=== PATIENT | female | born 1955 | race Two or more races ===

== ENCOUNTER 2017-07-21 10:19 | Outpatient (CLI) | payer OTHER | END 2017-07-21 10:45 | disposition home or self-care (01) | LOC: LAB 10:19 | DX: D64.89 Other specified anemias (principal); N39.0 Urinary tract infection, site not specified; E03.8 Other specified hypothyroidism; E78.2 Mixed hyperlipidemia; Z12.11 Encounter for screening for malignant neoplasm of colon; D68.8 Other specified coagulation defects; E55.9 Vitamin D deficiency, unspecified; D55.8 Other anemias due to enzyme disorders ==

== ENCOUNTER 2017-07-21 11:57 | Outpatient (CLI) | payer OTHER | END 2017-07-21 12:13 | disposition home or self-care (01) | LOC: MAMO-SONO 11:57 | DX: Z12.31 Encounter for screening mammogram for malignant neoplasm of breast (principal); Z87.898 Personal history of other specified conditions; N63.20 Unspecified lump in the left breast, unspecified quadrant ==

== ENCOUNTER 2017-07-28 15:10 | Outpatient (CLI) | payer OTHER | END 2017-07-28 15:16 | disposition home or self-care (01) | LOC: RAD 15:10 | DX: M51.87 Other intervertebral disc disorders, lumbosacral region (principal) ==

== ENCOUNTER 2017-08-12 14:00 | Outpatient (CLI) | payer OTHER | END 2017-08-12 14:01 | disposition home or self-care (01) | LOC: NUCLEAR 14:00 | DX: M81.0 Age-related osteoporosis without current pathological fracture (principal) ==

== ENCOUNTER 2017-08-31 12:50 | Outpatient (CLI) | payer OTHER | END 2017-08-31 13:01 | disposition home or self-care (01) | LOC: TOM 12:50 | DX: M46.47 Discitis, unspecified, lumbosacral region (principal); S32.000A Wedge compression fracture of unspecified lumbar vertebra, initial encounter for closed fracture ==

== ENCOUNTER 2017-09-23 07:54 | Outpatient (CLI) | payer OTHER | END 2017-09-23 08:09 | disposition home or self-care (01) | LOC: LAB 07:54 | DX: E78.2 Mixed hyperlipidemia (principal); E11.65 Type 2 diabetes mellitus with hyperglycemia ==

== ENCOUNTER → 2018-01-06 09:17 | Outpatient (CLI) | payer OTHER | END | disposition home or self-care (01) | LOC: LAB 09:17 | DX: D64.89 Other specified anemias (principal); E11.59 Type 2 diabetes mellitus with other circulatory complications; N39.0 Urinary tract infection, site not specified; E03.8 Other specified hypothyroidism; E78.4 Other hyperlipidemia; Z79.01 Long term (current) use of anticoagulants ==

== ENCOUNTER 2018-01-17 08:54 | Emergency (ER) | payer OTHER ==
[~2018-01-17] VITALS: Ht 157.5 cm; Wt 59.0 kg
[2018-01-17] MEDS ORDERED: CRESTOR20 MG (09:03)
== END 2018-01-17 13:18 | disposition home or self-care (01) ==
LOC: ER 08:54
DX: R10.32 Left lower quadrant pain (principal); M54.5 Low back pain

== ENCOUNTER → 2018-01-20 | Outpatient (CLI) | payer OTHER ==
[~2018-01-20] MED LIST: CRESTOR20 MG
== END | disposition home or self-care (01) ==
LOC: LAB 15:46
DX: K85.90 Acute pancreatitis without necrosis or infection, unspecified (principal); N39.0 Urinary tract infection, site not specified; M62.82 Rhabdomyolysis; T79.6XXA Traumatic ischemia of muscle, initial encounter

== ENCOUNTER 2018-01-21 08:22 | Outpatient (CLI) | payer OTHER | END 2018-01-21 09:55 | disposition home or self-care (01) | LOC: TOM 08:22 | DX: K85.90 Acute pancreatitis without necrosis or infection, unspecified (principal); N20.0 Calculus of kidney ==

== ENCOUNTER 2018-05-05 13:19 | Outpatient (CLI) | payer OTHER | END 2018-05-05 13:31 | disposition home or self-care (01) | LOC: TOM 13:19 | DX: I63.033 Cerebral infarction due to thrombosis of bilateral carotid arteries (principal) ==

== ENCOUNTER 2018-07-14 10:23 | Outpatient (CLI) | payer OTHER ==
[~2018-07-14] VITALS: Ht 157.5 cm; Wt 56.7 kg
== END 2018-07-14 10:40 | disposition home or self-care (01) ==
LOC: OFIC 805 10:23
DX: J31.0 Chronic rhinitis (principal); J34.3 Hypertrophy of nasal turbinates; R05 Cough; J34.2 Deviated nasal septum

== ENCOUNTER 2018-07-16 15:29 | Outpatient (CLI) | payer OTHER | END 2018-07-16 15:41 | disposition home or self-care (01) | LOC: MAMO-SONO 15:29 | DX: Z12.31 Encounter for screening mammogram for malignant neoplasm of breast (principal); Z87.898 Personal history of other specified conditions; N60.11 Diffuse cystic mastopathy of right breast; N60.12 Diffuse cystic mastopathy of left breast ==

== ENCOUNTER 2018-07-27 08:21 | Outpatient (CLI) | payer OTHER | END 2018-07-27 08:28 | disposition home or self-care (01) | LOC: LAB 08:21 | DX: E78.49 Other hyperlipidemia (principal); N91.2 Amenorrhea, unspecified; E34.8 Other specified endocrine disorders; N95.1 Menopausal and female climacteric states; E23.6 Other disorders of pituitary gland; R19.00 Intra-abdominal and pelvic swelling, mass and lump, unspecified site; N39.0 Urinary tract infection, site not specified; E55.9 Vitamin D deficiency, unspecified; N73.8 Other specified female pelvic inflammatory diseases; A60.04 Herpesviral vulvovaginitis; Z34.90 Encounter for supervision of normal pregnancy, unspecified, unspecified trimester ==

== ENCOUNTER → 2018-10-06 08:02 | Outpatient (CLI) | payer OTHER | END | disposition home or self-care (01) | LOC: LAB 08:02 | DX: M32.10 Systemic lupus erythematosus, organ or system involvement unspecified (principal) ==

== ENCOUNTER 2018-10-13 18:39 | Emergency (ER) | payer OTHER ==
[~2018-10-13] VITALS: Ht 157.5 cm; Wt 56.7 kg
== END 2018-10-13 21:52 | disposition home or self-care (01) ==
LOC: ER 18:39
DX: R10.84 Generalized abdominal pain (principal); R00.2 Palpitations; F06.4 Anxiety disorder due to known physiological condition

== ENCOUNTER 2018-11-12 07:25 | Outpatient (CLI) | payer OTHER | END 2018-11-12 07:49 | disposition home or self-care (01) | LOC: LAB 07:25 | DX: D64.89 Other specified anemias (principal); M81.0 Age-related osteoporosis without current pathological fracture; I10 Essential (primary) hypertension ==

== ENCOUNTER 2019-01-13 07:52 | Outpatient (CLI) | payer OTHER | END 2019-01-13 15:00 | disposition home or self-care (01) | LOC: LAB 07:52 | DX: M32.8 Other forms of systemic lupus erythematosus (principal); M34.2 Systemic sclerosis induced by drug and chemical ==

== ENCOUNTER 2019-04-06 11:16 | Outpatient (CLI) | payer OTHER ==
[~2019-04-06] VITALS: Ht 152.4 cm; Wt 56.7 kg
== END 2019-04-06 13:24 | disposition home or self-care (01) ==
LOC: OFIC 805 11:16
DX: H93.12 Tinnitus, left ear (principal); H61.22 Impacted cerumen, left ear; J34.2 Deviated nasal septum; J34.3 Hypertrophy of nasal turbinates; J31.0 Chronic rhinitis

== ENCOUNTER 2019-05-05 13:52 | Outpatient (CLI) | payer OTHER | END 2019-05-05 15:00 | disposition home or self-care (01) | LOC: LAB 13:52 | DX: J15.7 Pneumonia due to Mycoplasma pneumoniae (principal); J09.X1 Influenza due to identified novel influenza A virus with pneumonia; M32.8 Other forms of systemic lupus erythematosus; M06.09 Rheumatoid arthritis without rheumatoid factor, multiple sites; M32.10 Systemic lupus erythematosus, organ or system involvement unspecified ==

== ENCOUNTER 2019-05-24 13:04 | Outpatient (CLI) | payer OTHER | END 2019-05-24 13:17 | disposition home or self-care (01) | LOC: MAMO-SONO 13:04 | DX: N63.10 Unspecified lump in the right breast, unspecified quadrant (principal); N63.20 Unspecified lump in the left breast, unspecified quadrant; R92.0 Mammographic microcalcification found on diagnostic imaging of breast ==

== ENCOUNTER 2019-05-31 08:34 | Outpatient (CLI) | payer OTHER | END 2019-05-31 15:00 | disposition home or self-care (01) | LOC: LAB 08:34 | DX: E78.49 Other hyperlipidemia (principal); E34.8 Other specified endocrine disorders; N95.1 Menopausal and female climacteric states; E23.6 Other disorders of pituitary gland; R19.00 Intra-abdominal and pelvic swelling, mass and lump, unspecified site; N39.0 Urinary tract infection, site not specified; E55.9 Vitamin D deficiency, unspecified; N91.2 Amenorrhea, unspecified; N73.9 Female pelvic inflammatory disease, unspecified; A60.04 Herpesviral vulvovaginitis; Z34.90 Encounter for supervision of normal pregnancy, unspecified, unspecified trimester ==

== ENCOUNTER 2019-08-02 10:41 | Outpatient (CLI) | payer OTHER ==
[2019-08-02] MEDS ORDERED: FLONASE ALLERG9.9 ML NASAL (14:18)
[2019-08-02] MEDS ORDERED: LIPO-FLAVONOID1 EACH PO (14:19)
== END 2019-08-02 12:00 | disposition home or self-care (01) ==
LOC: OFIC 805 10:41
DX: H93.12 Tinnitus, left ear (principal); H61.22 Impacted cerumen, left ear

== ENCOUNTER → 2019-08-04 | Outpatient (CLI) | payer OTHER ==
[~2019-08-04] MED LIST changes: +FLONASE ALLERG9.9 ML NASAL; +LIPO-FLAVONOID1 EACH PO
== END | disposition home or self-care (01) ==
LOC: OFIC 805 12:09
DX: H93.12 Tinnitus, left ear (principal)

== ENCOUNTER 2019-09-07 16:21 | Emergency (ER) | payer OTHER ==
[~2019-09-07] VITALS: Ht 157.5 cm; Wt 58.5 kg
== END 2019-09-07 19:40 | disposition home or self-care (01) ==
LOC: ER 16:21
DX: M54.16 Radiculopathy, lumbar region (principal); M25.552 Pain in left hip

== ENCOUNTER 2019-09-23 13:22 | Outpatient (CLI) | payer OTHER | END 2019-09-23 13:29 | disposition home or self-care (01) | LOC: TOM 13:22 | PROVIDERS: ATTEND Physical Medicine & Rehabilitation | DX: M54.16 Radiculopathy, lumbar region (principal) ==

== ENCOUNTER → 2020-01-31 | Outpatient (CLI) | payer OTHER | END | disposition home or self-care (01) | LOC: OFIC 805 12:00 | PROVIDERS: ATTEND Otolaryngology | DX: J34.2 Deviated nasal septum (principal); H93.13 Tinnitus, bilateral ==

== ENCOUNTER → 2020-02-23 08:27 | Outpatient (CLI) | payer OTHER | END | disposition home or self-care (01) | LOC: LAB 08:27 | PROVIDERS: ATTEND Internal Medicine Interventional Cardiology | DX: D64.89 Other specified anemias (principal); E11.59 Type 2 diabetes mellitus with other circulatory complications; N39.0 Urinary tract infection, site not specified; E03.8 Other specified hypothyroidism; E78.49 Other hyperlipidemia; Z79.01 Long term (current) use of anticoagulants ==

== ENCOUNTER 2020-06-05 12:59 | Outpatient (CLI) | payer OTHER | END 2020-06-05 13:05 | disposition HB | LOC: RAD 12:59 | DX: M51.37 Other intervertebral disc degeneration, lumbosacral region (principal); M48.061 Spinal stenosis, lumbar region without neurogenic claudication ==

== ENCOUNTER → 2020-06-12 | Outpatient (CLI) | payer OTHER ==
[~2020-06-12] MED LIST changes: +ROSUVASTATIN CA20 MG
== END | disposition home or self-care (01) ==
LOC: MAMO-SONO 11:40
PROVIDERS: ATTEND Anesthesiology
DX: Z12.31 Encounter for screening mammogram for malignant neoplasm of breast (principal); N64.59 Other signs and symptoms in breast

== ENCOUNTER → 2020-06-20 | Emergency (ER) | payer OTHER ==
[~2020-06-20] VITALS: Ht 157.5 cm; Wt 55.8 kg
== END | disposition left against medical advice (07) ==
LOC: ER 20:04
DX: M54.16 Radiculopathy, lumbar region (principal); M47.896 Other spondylosis, lumbar region

== ENCOUNTER 2020-07-10 09:01 | Outpatient (CLI) | payer OTHER | END 2020-07-10 09:14 | disposition home or self-care (01) | LOC: LAB 09:01 | PROVIDERS: ATTEND Obstetrics & Gynecology | DX: E11.9 Type 2 diabetes mellitus without complications (principal) ==

== ENCOUNTER → 2020-08-15 08:43 | Outpatient (CLI) | payer OTHER | END | disposition home or self-care (01) | LOC: LAB 08:43 | PROVIDERS: ATTEND Specialist | DX: M35.1 Other overlap syndromes (principal) ==

== ENCOUNTER 2020-08-15 09:55 | Outpatient (CLI) | payer OTHER | END 2020-08-15 10:09 | disposition home or self-care (01) | LOC: TOM 09:55 | PROVIDERS: ATTEND Specialist | DX: M51.36 Other intervertebral disc degeneration, lumbar region (principal) ==

== ENCOUNTER → 2020-11-29 08:36 | Outpatient (CLI) | payer OTHER | END | disposition home or self-care (01) | LOC: LAB 08:36 | PROVIDERS: ATTEND Specialist | DX: D64.89 Other specified anemias (principal); N39.0 Urinary tract infection, site not specified; D68.8 Other specified coagulation defects; E03.8 Other specified hypothyroidism; E78.2 Mixed hyperlipidemia; Z12.11 Encounter for screening for malignant neoplasm of colon ==

== ENCOUNTER → 2021-02-13 08:41 | Outpatient (CLI) | payer OTHER | END | disposition home or self-care (01) | LOC: LAB 08:41 | PROVIDERS: ATTEND Specialist | DX: N39.0 Urinary tract infection, site not specified (principal) ==

== ENCOUNTER 2021-04-09 16:32 | Outpatient (CLI) | payer OTHER | END 2021-04-09 23:00 | disposition home or self-care (01) | LOC: LAB 16:32 | DX: Z03.818 Encounter for observation for suspected exposure to other biological agents ruled out (principal) ==

== ENCOUNTER 2021-05-27 16:05 | Outpatient (CLI) | payer OTHER | END 2021-05-27 16:08 | disposition home or self-care (01) | LOC: RAD 16:05 | PROVIDERS: ATTEND Specialist | DX: M54.2 Cervicalgia (principal); M60.9 Myositis, unspecified; M62.838 Other muscle spasm ==

== ENCOUNTER 2021-07-04 08:29 | Outpatient (CLI) | payer OTHER | END 2021-07-04 08:38 | disposition home or self-care (01) | LOC: LAB 08:29 | PROVIDERS: ATTEND Specialist | DX: E11.21 Type 2 diabetes mellitus with diabetic nephropathy (principal); N39.9 Disorder of urinary system, unspecified; D64.9 Anemia, unspecified ==

== ENCOUNTER 2021-07-04 09:19 | Outpatient (CLI) | payer OTHER | END 2021-07-04 09:30 | disposition home or self-care (01) | LOC: MAMO-SONO 09:19 | PROVIDERS: ATTEND Specialist | DX: Z12.31 Encounter for screening mammogram for malignant neoplasm of breast (principal) ==

== ENCOUNTER 2021-10-10 07:53 | Outpatient (CLI) | payer OTHER | END 2021-10-10 07:54 | disposition home or self-care (01) | LOC: LAB 07:53 | PROVIDERS: ATTEND Specialist | DX: E03.9 Hypothyroidism, unspecified (principal); N39.9 Disorder of urinary system, unspecified; Z12.11 Encounter for screening for malignant neoplasm of colon; E11.65 Type 2 diabetes mellitus with hyperglycemia; K75.81 Nonalcoholic steatohepatitis (NASH); N39.0 Urinary tract infection, site not specified ==

== ENCOUNTER 2021-10-17 09:46 | Outpatient (CLI) | payer OTHER | END 2021-10-17 09:50 | disposition home or self-care (01) | LOC: RAD 09:46 | DX: M99.03 Segmental and somatic dysfunction of lumbar region (principal); M99.04 Segmental and somatic dysfunction of sacral region ==

== ENCOUNTER 2022-01-02 08:07 | Outpatient (CLI) | payer OTHER | END 2022-01-02 08:08 | disposition home or self-care (01) | LOC: LAB 08:07 | PROVIDERS: ATTEND Specialist | DX: E11.69 Type 2 diabetes mellitus with other specified complication (principal); E11.21 Type 2 diabetes mellitus with diabetic nephropathy; E03.8 Other specified hypothyroidism; D64.89 Other specified anemias; N39.9 Disorder of urinary system, unspecified; Z13.220 Encounter for screening for lipoid disorders ==

== ENCOUNTER 2022-01-02 09:23 | Outpatient (CLI) | payer OTHER | END 2022-01-02 09:33 | disposition home or self-care (01) | LOC: TOM 09:23 | PROVIDERS: ATTEND Specialist | DX: M48.02 Spinal stenosis, cervical region (principal) ==

== ENCOUNTER 2022-01-23 13:12 | Outpatient (CLI) | payer OTHER | END 2022-01-23 13:22 | disposition home or self-care (01) | LOC: SONOGRAMA 13:12 | PROVIDERS: ATTEND Specialist | DX: N23 Unspecified renal colic (principal) ==

== ENCOUNTER 2022-04-03 08:24 | Outpatient (CLI) | payer OTHER | END 2022-04-03 08:55 | disposition home or self-care (01) | LOC: LAB 08:24 | PROVIDERS: ATTEND Specialist | DX: R19.5 Other fecal abnormalities (principal); E03.8 Other specified hypothyroidism; Z13.220 Encounter for screening for lipoid disorders; E11.69 Type 2 diabetes mellitus with other specified complication; D64.89 Other specified anemias; E11.21 Type 2 diabetes mellitus with diabetic nephropathy; R07.9 Chest pain, unspecified ==

== ENCOUNTER 2022-07-10 08:56 | Outpatient (CLI) | payer OTHER | END 2022-07-10 09:06 | disposition home or self-care (01) | LOC: LAB 08:56 | PROVIDERS: ATTEND Specialist | DX: D64.89 Other specified anemias (principal); M00.89 Polyarthritis due to other bacteria; E03.8 Other specified hypothyroidism; E11.69 Type 2 diabetes mellitus with other specified complication; N25.81 Secondary hyperparathyroidism of renal origin; R07.89 Other chest pain; N39.9 Disorder of urinary system, unspecified; E11.21 Type 2 diabetes mellitus with diabetic nephropathy; Z13.220 Encounter for screening for lipoid disorders; R19.5 Other fecal abnormalities ==

== ENCOUNTER 2022-07-22 10:32 | Outpatient (CLI) | payer OTHER | END 2022-07-22 10:36 | disposition home or self-care (01) | LOC: RAD 10:32 | PROVIDERS: ATTEND Specialist | DX: Z12.39 Encounter for other screening for malignant neoplasm of breast (principal); N60.39 Fibrosclerosis of unspecified breast; J45.991 Cough variant asthma ==

== ENCOUNTER 2022-07-22 11:46 | Outpatient (CLI) | payer OTHER | END 2022-07-22 12:18 | disposition home or self-care (01) | LOC: NUCLEAR 11:46 | PROVIDERS: ATTEND Specialist | DX: M81.0 Age-related osteoporosis without current pathological fracture (principal) ==

== ENCOUNTER 2022-10-07 07:59 | Outpatient (CLI) | payer OTHER | END 2022-10-07 08:00 | disposition home or self-care (01) | LOC: LAB 07:59 | PROVIDERS: ATTEND Specialist | DX: E03.8 Other specified hypothyroidism (principal); N39.9 Disorder of urinary system, unspecified; R19.5 Other fecal abnormalities; Z13.220 Encounter for screening for lipoid disorders; D64.89 Other specified anemias; E11.21 Type 2 diabetes mellitus with diabetic nephropathy; E11.69 Type 2 diabetes mellitus with other specified complication ==

== ENCOUNTER 2023-01-07 07:52 | Outpatient (CLI) | payer OTHER ==
[2023-01-07 08:57] LABS: HEMOGLOBIN 12.1 g/dL (12.0-15.00); MEAN CELL VOLUME 89.1 fL (80.00-100.00); MEAN CORPUSCULAR HEMOGLOBIN 31.6 pg (27.00-32.0); MEAN CORPUSCULAR HGB CONC 35.5 g/dl (32.0-36.0); PLATELET COUNT 233 K/uL (150-450); RED BLOOD COUNT 3.81 M/uL (4.00-6.00); RED CELL DISTRIBUTION WIDTH 12.8 % (11.5-14.5)
[2023-01-07 09:23] LABS: ALBUMIN 3.9 gm/dL (3.4-5.0); ALKALINE PHOSPHATASE 61 U/L (50-136); ALT/SGPT 25 U/L (12-78); AST/SGOT 20 U/L (15-37); BILIRUBIN TOTAL 0.63 mg/dL (0.3-1.2); BLOOD UREA NITROGEN 7 mg/dL (7-18); BUN CREA RATIO 9 (7.0-25.0); CALCIUM 8.8 mg/dL (8.5-10.1); CARBON DIOXIDE 31 mEq/L (21-32); CHLORIDE 107 mmol/L (98-107); CHOLESTEROL 138 mg/dL (0-200); GFR 71.12; GLOBULINA 3.4 G/DL (2.4-3.5); GLUCOSE FASTING 93 mg/dL (65-100); HDL 61 mg/dl (40-60); LDL 44 mg/dl (0-130); OSMOLALITY SERUM 279 MOSM/KG (275-295); POTASSIUM 3.72 mEq/L (3.5-5.1); SODIUM 141 mmol/L (136-145); TOTAL PROTEIN 7.3 gm/dL (6.4-8.2); TRIGLYCERIDES 166 mg/dL (0-150); VLDL 33 (0-39)
== END 2023-01-07 07:53 | disposition home or self-care (01) ==
LOC: LAB 07:52
PROVIDERS: ATTEND Specialist
DX: Z13.220 Encounter for screening for lipoid disorders (principal); E11.21 Type 2 diabetes mellitus with diabetic nephropathy; E11.69 Type 2 diabetes mellitus with other specified complication; D64.89 Other specified anemias; N39.0 Urinary tract infection, site not specified; Z88.6 Allergy status to analgesic agent

== ENCOUNTER → 2023-05-07 11:12 | Outpatient (CLI) | payer OTHER ==
[2023-05-07 13:31] LABS: URINE PROT QUANT 24HR < 5.00 MG/DL
[2023-05-07 13:36] LABS: CREATINE CLEARANCE 37.6 ML/MIN (97-137); CREATININE SERUM 0.93 mg/dL (0.6-1.0)
== END | disposition home or self-care (01) ==
LOC: LAB 05-05 10:29
PROVIDERS: ATTEND Specialist
DX: N39.9 Disorder of urinary system, unspecified (principal)

== ENCOUNTER 2023-07-14 10:37 | Outpatient (CLI) | payer OTHER ==
[2023-07-14 11:54] LABS: HEMATOCRIT 35.1 % (36.0-45.00); HEMOGLOBIN 12.3 g/dL (12.0-15.00); MEAN CELL VOLUME 91.1 fL (80.00-100.00); MEAN CORPUSCULAR HGB CONC 35.1 g/dl (32.0-36.0); PLATELET COUNT 248 K/uL (150-450); RED BLOOD COUNT 3.85 M/uL (4.00-6.00); RED CELL DISTRIBUTION WIDTH 13.6 % (11.5-14.5)
[2023-07-14 11:59] LABS: URINE APPEARANCE Cloudy; URINE BILIRRUBIN Negative (NEGATIVE); URINE BLOOD Negative; URINE COLOR Dark Yellow; URINE GLUCOSE Negative (NEGATIVE); URINE LEUKOCYTE Trace; URINE NITRATE Negative; URINE PROTEIN Negative (NEGATIVE)
[2023-07-14 12:04] LABS: URINE BACTERIA 109.5 uL (0.0-1933); URINE EPITHELIAL CELLS 7.7 uL (0.0-38.8); URINE RBC 34.3 uL (0.0-20.8); URINE WBC 7.2 uL (0.0-23.2)
[2023-07-14 12:44] LABS: CALCIUM 9.5 mg/dL (8.5-10.1); CHOL HDL RATIO 2.5 (0-5.0); CREATININE SERUM 0.87 mg/dL (0.55-1.02); GFR 64.37; PHOSPHOROUS 3.1 mg/dL (2.5-4.9); POTASSIUM 4.23 mEq/L (3.5-5.1); URIC ACID 3.1 mg/dL (2.5-7.5)
[2023-07-18 15:10] LABS: a:g ratio 1.2 (0.7-1.7); alpha 1 g 0.2 g/dL (0.0-0.4); alpha 2 0.6 g/dL (0.4-1.0); gamma g 1.4 g/dL (0.4-1.8); globulin t 3.3 g/dL (2.2-3.9); m spike Not Observed g/dL (Not Observed); prot total 7.2 g/dL (6.0-8.5)
[2023-07-20 13:09] LABS: albu 12.1 % (.); alp 0 % (.); alph 2 0 % (.); beta 0 % (.); gam 0 % (.); m spi 0 % (Not Observed); prot 17.6 mg/dL (Not Estab.)
== END 2023-07-14 10:45 | disposition home or self-care (01) ==
LOC: LAB 10:37
PROVIDERS: ATTEND Internal Medicine Nephrology
DX: N18.2 Chronic kidney disease, stage 2 (mild) (principal); I10 Essential (primary) hypertension; E11.22 Type 2 diabetes mellitus with diabetic chronic kidney disease; R10.9 Unspecified abdominal pain

== ENCOUNTER 2023-07-27 09:14 | Outpatient (CLI) | payer OTHER | END 2023-07-27 09:23 | disposition home or self-care (01) | LOC: SONOGRAMA 09:14 | PROVIDERS: ATTEND Internal Medicine Nephrology | DX: N18.2 Chronic kidney disease, stage 2 (mild) (principal); R60.9 Edema, unspecified ==

== ENCOUNTER 2023-07-27 09:51 | Outpatient (CLI) | payer OTHER ==
[2023-07-27 11:30] LABS: URINE APPEARANCE Turbid; URINE BILIRRUBIN Negative (NEGATIVE); URINE BLOOD Negative; URINE COLOR Yellow; URINE GLUCOSE Negative (NEGATIVE); URINE LEUKOCYTE Negative; URINE NITRATE Negative; URINE PROTEIN Negative (NEGATIVE); URINE UROBILINOGEN 0.2 E.U./dl
[2023-07-27 11:34] LABS: URINE BACTERIA 31.4 uL (0.0-1933); URINE EPITHELIAL CELLS 3.5 uL (0.0-38.8); URINE WBC 6.8 uL (0.0-23.2)
[2023-07-27 11:37] LABS: HEMATOCRIT 34.9 % (36.0-45.00); HEMOGLOBIN 12.1 g/dL (12.0-15.00); MEAN CELL VOLUME 88.7 fL (80.00-100.00); MEAN CORPUSCULAR HEMOGLOBIN 30.7 pg (27.00-32.0); MEAN CORPUSCULAR HGB CONC 34.6 g/dl (32.0-36.0); PLATELET COUNT 292 K/uL (150-450); RED BLOOD COUNT 3.94 M/uL (4.00-6.00); RED CELL DISTRIBUTION WIDTH 13.2 % (11.5-14.5)
[2023-07-27 11:42] LABS: CREATININE URINE 64.8 MG/DL; URINE PROT QUANT 24HR 6.7 MG/DL
[2023-07-27 11:46] LABS: URINE PROT QUANT 24 HR 46.9 MG/24HR (42-225)
[2023-07-27 12:39] LABS: BILIRUBIN TOTAL 0.44 mg/dL (0.3-1.2); CALCIUM 9.7 mg/dL (8.5-10.1); CHOL HDL RATIO 2.1 (0-5.0); CREATININE SERUM 0.74 mg/dL (0.55-1.02); FREE TRIODOTIRONINE 3.1 pg/ml (2.18-3.98); GFR 77.59; GLOBULINA 3.5 G/DL (2.4-3.5); POTASSIUM 3.91 mEq/L (3.5-5.1); T4 FREE 1.18 NG/ML (0.76-1.46); TOTAL PROTEIN 7.5 gm/dL (6.4-8.2); TSH 1.16 uIU/mL (0.358-3.74)
[2023-07-27 13:46] LABS: CREATINE CLEARANCE 42.7 ML/MIN (97-137); CREATININE SERUM 0.74 mg/dL (0.6-1.0)
== END 2023-07-27 09:52 | disposition home or self-care (01) ==
LOC: LAB 09:51
PROVIDERS: ATTEND Specialist
DX: E03.8 Other specified hypothyroidism (principal); E11.21 Type 2 diabetes mellitus with diabetic nephropathy; E11.69 Type 2 diabetes mellitus with other specified complication; D64.89 Other specified anemias; N39.9 Disorder of urinary system, unspecified; Z13.220 Encounter for screening for lipoid disorders; N18.2 Chronic kidney disease, stage 2 (mild); I10 Essential (primary) hypertension; E11.22 Type 2 diabetes mellitus with diabetic chronic kidney disease; R10.9 Unspecified abdominal pain

== ENCOUNTER → 2023-12-16 07:14 | Outpatient (CLI) | payer OTHER | END | disposition home or self-care (01) | LOC: NUCLEAR 07:00 | PROVIDERS: ATTEND Internal Medicine Gastroenterology | DX: K82.9 Disease of gallbladder, unspecified (principal) | CPT/HCPCS: 78227; A9537; J2805 ==

== ENCOUNTER 2023-12-16 10:07 | Outpatient (CLI) | payer OTHER ==
[2023-12-16 11:13] LABS: HEMATOCRIT 35.8 % (36.0-45.00); HEMOGLOBIN 12.3 g/dL (12.0-15.00); MEAN CELL VOLUME 91.6 fL (80.00-100.00); MEAN CORPUSCULAR HEMOGLOBIN 31.5 pg (27.00-32.0); MEAN CORPUSCULAR HGB CONC 34.4 g/dl (32.0-36.0); PLATELET COUNT 260 K/uL (150-450); RED BLOOD COUNT 3.91 M/uL (4.00-6.00)
[2023-12-16 11:34] LABS: CREATININE URINE RANDOM 64.2 MG/DL (30-125)
[2023-12-16 11:59] LABS: ALBUMIN 4.2 gm/dL (3.4-5.0); BILIRUBIN TOTAL 0.57 mg/dL (0.3-1.2); BILIRUBIN,CONJUGATED 0.14 mg/dL (0.0-0.2); BILIRUBIN,UNCONJUGATED 0.43 mg/dL (0.0-0.6); CALCIUM 9.4 mg/dL (8.5-10.1); CHOL HDL RATIO 2.4 (0-5.0); CREATININE SERUM 0.68 mg/dL (0.55-1.02); GFR 85.54; GLOBULINA 3.6 G/DL (2.4-3.5); POTASSIUM 4.75 mEq/L (3.5-5.1); TOTAL PROTEIN 7.8 gm/dL (6.4-8.2); TSH 1.52 uIU/mL (0.358-3.74)
== END 2023-12-16 10:13 | disposition home or self-care (01) ==
LOC: LAB 10:07
PROVIDERS: ATTEND Specialist
DX: E03.9 Hypothyroidism, unspecified (principal); E78.2 Mixed hyperlipidemia; D64.9 Anemia, unspecified; E11.65 Type 2 diabetes mellitus with hyperglycemia; K75.81 Nonalcoholic steatohepatitis (NASH); N39.0 Urinary tract infection, site not specified; E11.21 Type 2 diabetes mellitus with diabetic nephropathy

== ENCOUNTER 2024-09-30 13:02 | Outpatient (CLI) | payer OTHER | END 2024-09-30 13:04 | disposition home or self-care (01) | LOC: MAMO-SONO 13:02 | PROVIDERS: ATTEND Specialist | DX: N60.39 Fibrosclerosis of unspecified breast (principal); M81.0 Age-related osteoporosis without current pathological fracture; Z13.820 Encounter for screening for osteoporosis; Z12.39 Encounter for other screening for malignant neoplasm of breast; Z12.31 Encounter for screening mammogram for malignant neoplasm of breast ==

== ENCOUNTER 2024-11-16 08:28 | Outpatient (CLI) | payer OTHER ==
[2024-11-16 09:03] LABS: BASO % 0.2 % (0.1-1.2); EOS # 0.07 (0.04-0.54); EOS % 1.4 % (0.7-7.0); LYMPH # 1.70 (1.18-3.74); LYMPH % 34.8 % (19.3-53.1); MEAN PLATELET VOLUME 9.20 fl (9.4-12.4); MONO # 0.37 (0.24-0.82); MONO % 7.6 % (4.7-12.5); NEUT # 2.72 (1.56-6.13); NEUT % 55.6 % (34.0-71.1); RED CELL DISTRIBUTION WIDTH 12.7 % (11.6-14.4)
[2024-11-16 09:11] LABS: URINE APPEARANCE Clear; URINE BILIRRUBIN Negative (NEGATIVE); URINE COLOR Yellow; URINE GLUCOSE Negative (NEGATIVE); URINE KETONE Negative (NEGATIVE); URINE LEUKOCYTE Trace; URINE NITRATE Negative; URINE PROTEIN Negative (NEGATIVE); URINE UROBILINOGEN 0.2 E.U./dl
[2024-11-16 09:13] LABS: URINE BACTERIA 13.2 uL (0.0-1933); URINE EPITHELIAL CELLS 3.8 uL (0.0-38.8); URINE RBC 26.3 uL (0.0-20.8); URINE WBC 25.6 uL (0.0-23.2)
[2024-11-16 09:18] LABS: URINE BLOOD TRACES; URINE CAST 1.17 uL (0.0-1.40)
[2024-11-16 09:43] LABS: ob NEGATIVE (NEGATIVE)
[2024-11-16 10:25] LABS: ALT/SGPT 26.0 U/L (12-78); AST/SGOT 18.0 U/L (15-37); BILIRUBIN TOTAL 0.58 mg/dL (0.3-1.2); BUN CREA RATIO 13.0 (7.0-25.0); CHOL HDL RATIO 3.1 (0-5.0); CREATININE SERUM 0.8 mg/dL (0.55-1.02); FREE TRIODOTIRONINE 2.95 pg/ml (2.18-3.98); GFR 70.71; GLOBULINA 3.7 G/DL (2.4-3.5); GLUCOSE FASTING 85.0 mg/dL (65-100); HDL 58.0 mg/dl (40-60); LDL 76.0 mg/dl (0-130); OSMOLALITY SERUM 281.0 MOSM/KG (275-295); T4 FREE 0.88 NG/ML (0.76-1.46); TSH 1.74 uIU/mL (0.358-3.74); VLDL 43.0 (0-39)
== END 2024-11-16 08:34 | disposition home or self-care (01) ==
LOC: LAB 08:28
PROVIDERS: ATTEND Specialist
DX: E03.9 Hypothyroidism, unspecified (principal); N39.9 Disorder of urinary system, unspecified; E78.2 Mixed hyperlipidemia; E11.65 Type 2 diabetes mellitus with hyperglycemia; Z12.11 Encounter for screening for malignant neoplasm of colon; D64.9 Anemia, unspecified; M32.10 Systemic lupus erythematosus, organ or system involvement unspecified; E16.2 Hypoglycemia, unspecified; E16.0 Drug-induced hypoglycemia without coma; E55.9 Vitamin D deficiency, unspecified

== ENCOUNTER 2024-11-18 11:59 | Outpatient (CLI) | payer OTHER | END 2024-11-18 12:04 | disposition home or self-care (01) | LOC: RAD 11:59 | DX: M99.03 Segmental and somatic dysfunction of lumbar region (principal); M99.04 Segmental and somatic dysfunction of sacral region; M99.05 Segmental and somatic dysfunction of pelvic region; M54.51 Vertebrogenic low back pain ==

== ENCOUNTER 2025-03-02 14:59 | Outpatient (CLI) | payer OTHER ==
[2025-03-02 15:39] LABS: BASO % 0.4 % (0.1-1.2); EOS # 0.10 (0.04-0.54); EOS % 1.4 % (0.7-7.0); LYMPH # 2.64 (1.18-3.74); LYMPH % 38.0 % (19.3-53.1); MEAN PLATELET VOLUME 9.30 fl (9.4-12.4); MONO # 0.54 (0.24-0.82); MONO % 7.8 % (4.7-12.5); NEUT # 3.62 (1.56-6.13); NEUT % 52.1 % (34.0-71.1); RED CELL DISTRIBUTION WIDTH 12.3 % (11.6-14.4)
[2025-03-02 17:13] LABS: ERYTHROCYTE SEDIMENTATION RATE 11 mm/hr (0-30)
[2025-03-04 10:11] LABS: ANTI THYROID PEROXIDASE 12 IU/mL (0-34); COMPLEMENT C3 144 mg/dL (82-167); COMPLEMENT C4 20 mg/dL (12-38)
[2025-03-04 12:07] LABS: DNA AB DOUBLE STRABDED < 1 IU/mL (0-9)
== END 2025-03-02 15:11 | disposition home or self-care (01) ==
LOC: CIR.AMB 14:59 → LAB 14:59
PROVIDERS: ATTEND Specialist
DX: D64.9 Anemia, unspecified (principal); M35.3 Polymyalgia rheumatica